=== PATIENT | female | born 1970 ===

== ENCOUNTER 2023-01-04 12:14 | Inpatient (IN) | payer OTHER ==
[~2023-01-04] VITALS: Ht 165.1 cm; Wt 68.2 kg
[2023-01-04 14:27] LABS: BASOPHILS % (AUTO) 0.6 % (0.0-2.0); EOSINOPHILS % (AUTO) 0.6 % (1.0-6.0); HEMATOCRIT 40.4 % (36-46); HEMOGLOBIN 14.1 g/dL (12.0-16.0); LYMPHOCYTES # (AUTO) 1.1 K/uL (1.0-4.8); LYMPHOCYTES % (AUTO) 19.7 % (22.0-44.0); MEAN CORPUSCULAR HEMOGLOBIN 32.7 pg (26.0-34.0); MEAN CORPUSCULAR HGB CONC 34.8 G/dL (31.0-37.0); MEAN CORPUSCULAR VOLUME 94 fL (80-100); MONOCYTES # (AUTO) 0.6 K/uL (0.1-1.0); MONOCYTES % (AUTO) 11.2 % (2.0-9.0); NEUTROPHILS # (AUTO) 3.8 K/uL (1.8-7.7); NEUTROPHILS % (AUTO) 67.9 % (40.0-70.0); PLATELET COUNT (AUTO) 243 K/uL (150-450); RED BLOOD CELL COUNT(AUTO) 4.31 MIL/uL (4.00-5.20); RED CELL DISTRIBUTION WIDTH 13.1 % (11.5-14.5); WHITE BLOOD COUNT (AUTO) 5.6 K/uL (4.5-11.0)
[2023-01-04 14:36] LABS: ANION GAP 10 mmol/L (8-16); CALCIUM, TOTAL 8.9 mg/dL (8.8-10.5); CARBON DIOXIDE 27 mmol/L (22-29); CHLORIDE 98 mmol/L (98-107); CREATININE 0.82 mg/dL (0.60-1.30); GLOMERULAR FILTR. RATE CALC > 60 mL/min (>60); GLUCOSE,RANDOM 68 mg/dL (70-110); POTASSIUM 3.4 mmol/L (3.5-5.1); SODIUM SERUM 135 mmol/L (136-145); UREA NITROGEN, BLOOD 12 mg/dL (7-18)
[2023-01-04 14:42] LABS: ALANINE AMINOTRANSFERASE 14 U/L (12-78); ALBUMIN 3.3 g/dL (3.4-5.0); ALKALINE PHOSPHATASE 61 U/L (46-116); ASPARTATE AMINOTRANSFERASE 20 U/L (15-37); BILIRUBIN,TOTAL 1.1 mg/dL (0.1-1.0); LIPASE 49 U/L (16-77); TOTAL PROTEIN, SERUM 8.1 g/dL (6.4-8.2)
[2023-01-04 14:44] LABS: TROPONIN I-HIGH SENSITIVITY 4 ng/L (<51)
[2023-01-04] MEDS ORDERED: SODIUM CHLORIDE 0.9% 1,000 ML IV ONE (15:00)
[2023-01-04 15:14] LABS: COVID AG,FIA SOURCE NASAL SWAB
[2023-01-04] MEDS ORDERED: MAGNESIUM HYDROXIDE SUSPENSION 30 ML UDCUP PO PRN (15:15)
[2023-01-04] MEDS ORDERED: ACETAMINOPHEN 325 MG TABLET PO PRN (15:15)
[2023-01-04] MEDS ORDERED: POTASSIUM CHLORIDE 20 MEQ ER TABLET PO PRN (15:15)
[2023-01-04] MEDS ORDERED: ZOLPIDEM TARTRATE 5 MG TABLET PO PRN (15:15)
[2023-01-04 15:47] LABS: SARS-COV2 (COVID) ANTIGEN,FIA Negative (Negative)
[2023-01-04] MEDS: DEXTROSE 5%-0.9% SODIUM CHL 1,000 ML IV SCH (16:02)
[2023-01-04 17:26] VITALS: BP 103/71; PULSE 101; RESP 19; TEMP 98.3
[2023-01-04] MEDS: POTASSIUM CHL 10 MEQ/WATER 50 ML IV PRN (18:14)
[2023-01-04 19:51] VITALS: BP 95/59; PULSE 73; RESP 18; TEMP 97.8
[2023-01-04] MEDS: MIRTAZAPINE 15 MG TABLET PO SCH (20:36)
[2023-01-04 20:41] LABS: APPEARANCE,URINE HAZY (CLEAR); COLOR,URINE YELLOW (YELLOW); GLUCOSE, URINE (UA) NEGATIVE (NEGATIVE); KETONES,URINE =>150 mg/dL (NEGATIVE); LEUKOCYTE ESTERASE ,URINE NEGATIVE (NEGATIVE); NITRATE,URINE NEGATIVE (NEGATIVE); OCCULT BLOOD,URINE TRACE (NEGATIVE); PH,URINE 6.5 (5.0-8.0); PROTEIN,URINE 30-70 mg/dL (NEGATIVE); SPECIFIC GRAVITIY, URINE 1.034 (1.003-1.030)
[2023-01-04 20:43] LABS: BILIRUBIN,URINE SMALL (NEGATIVE)
[2023-01-04 20:52] LABS: SQUAMOUS EPITHELIAL CELL,UR Few /LPF (None Seen)
[2023-01-04 20:53] LABS: BACTERIA,URINE Rare /HPF (None Seen); RBC,URINE 0-2 /HPF (0-2); WBC,URINE 0-2 /HPF (0-5)
[2023-01-04] MEDS: ONDANSETRON HCL 4 MG/2 ML VIAL IVP PRN (21:53)
[2023-01-05 05:10] VITALS: BP 93/54; PULSE 64; RESP 18; TEMP 97.7
[2023-01-05] MEDS: MULTIVITAMINS WITH MINERALS, THERAPEUTIC TABLET PO SCH (09:00)
[2023-01-05] MEDS ORDERED: FAMOTIDINE 20 MG TABLET PO SCH (09:00)
[2023-01-05 09:09] VITALS: BP 91/57; PULSE 63; RESP 18; TEMP 98.3
[2023-01-05] MEDS: ONDANSETRON HCL 4 MG/2 ML VIAL IVP PRN (09:49)
[2023-01-05] MEDS: PANTOPRAZOLE SODIUM 40 MG/VIAL IVP SCH (09:49)
[2023-01-05] MEDS: METOCLOPRAMIDE HCL 5 MG/ML 2 ML VIAL IVP PRN (09:49)
[2023-01-05] MEDS: DEXTROSE 5%-0.9% SODIUM CHL 1,000 ML IV SCH (09:49)
[2023-01-05 15:45] VITALS: BP 92/51; PULSE 69; RESP 18; TEMP 98.3
[2023-01-05 16:59] LABS: MAGNESIUM 2.1 mg/dL (1.80-2.40); PHOSPHORUS 2.6 mg/dL (2.5-4.9)
[2023-01-05 17:06] LABS: POTASSIUM 2.8 mmol/L (3.5-5.1)
[2023-01-05] MEDS: POTASSIUM CHL 10 MEQ/WATER 50 ML IV PRN ×3 (17:23→23:14)
[2023-01-05] MEDS ORDERED: SODIUM CHLORIDE 0.9% 1,000 ML ONE (18:46)
[2023-01-05] MEDS: MIRTAZAPINE 15 MG TABLET PO SCH (21:00)
[2023-01-05 22:33] VITALS: BP 91/52; PULSE 70; RESP 18; TEMP 99
[2023-01-06] MEDS: DEXTROSE 5%-0.9% SODIUM CHL 1,000 ML IV SCH (00:40)
[2023-01-06] MEDS: ONDANSETRON HCL 4 MG/2 ML VIAL IVP PRN ×2 (00:51→08:58)
[2023-01-06] MEDS: METOCLOPRAMIDE HCL 5 MG/ML 2 ML VIAL IVP PRN ×2 (01:13→12:14)
[2023-01-06 06:25] VITALS: BP 111/67; PULSE 71; RESP 18; TEMP 98.1
[2023-01-06 08:58] VITALS: BP 89/48; PULSE 68; RESP 18; TEMP 97.9
[2023-01-06] MEDS: PANTOPRAZOLE SODIUM 40 MG/VIAL IVP SCH (08:58)
[2023-01-06] MEDS: MULTIVITAMINS WITH MINERALS, THERAPEUTIC TABLET PO SCH (08:58)
[2023-01-06] MEDS ORDERED: SODIUM CHLORIDE 0.9% 500 ML IV ONE (11:00)
[2023-01-06] MEDS ORDERED: MULT-248 PO (11:54)
[2023-01-06] MEDS ORDERED: ACET-2247 PO (11:54)
[2023-01-06] MEDS ORDERED: MAGN-169 PO (11:55)
[2023-01-06 13:00] VITALS: BP 110/62; PULSE 68
== END 2023-01-06 14:00 | DRG 923 ==
LOC: EMS 12:16 → 6S 16:06
PROVIDERS: ADMIT Internal Medicine; ATTEND Internal Medicine
DX: T73.0XXA Starvation, initial encounter (principal); E44.0 Moderate protein-calorie malnutrition; F33.1 Major depressive disorder, recurrent, moderate; E87.6 Hypokalemia; R62.7 Adult failure to thrive; X58.XXXA Exposure to other specified factors, initial encounter; K21.9 Gastro-esophageal reflux disease without esophagitis; Z20.822 Contact with and (suspected) exposure to COVID-19; Z68.25 Body mass index [BMI] 25.0-25.9, adult
CPT/HCPCS: 71045; 80053; 81001; 83690; 83735; 84100; 84132; 84484; 84703; 85025; 93005; 99285; C9113; J2405; J2765; J3480; J7030; J7040; J7042; 36415-L1; 36415-TC